=== PATIENT | female | born 1990 | race Native Hawaiian/Other Pacific Islander ===

== ENCOUNTER 2017-05-28 09:57 | Inpatient (IN) | payer OTHER, MEDICAID ==
--- NOTE | 2017-05-28 11:15 | OBHP ---
Datetime: 05/28/2017 10:58 IP Admit Plan: Admit to unit Admit Comment, IP Provider: chief complaint-vaginal bleeding HPI 27 y/o at 39.4 wga with c/o vaginal bleeding whcihs he noticed today.patient states that she had contractions for 2 hours but they stopped and then she wipe dsome blood course uncompliacted PMH denies PSH denies OBGYN HX Social hx-denies tobacco, alcohol or illicit drug use Exam see exam section A/P 27 y/o at 39.4 wga with c/o vaginal bleeding.on arrival patient had a decel for approx 5 min with barbara at 90s which recovered with position change.fht reactive after that.Bedsid escan done .kai 9.2 cm, vertex.Due to the decel at term and vaginal bleeding recommend admission -discussed plan of care with dr wilhelm -admit -see orders Pelvic Type - PN: Adequate Extremities - PN: Normal Abdomen - PN: Normal Back - PN: Normal Lungs - PN: Normal Heart - PN: Normal Neurologic - PN: Normal General - PN: Normal Contraction Comments Provider: occ Gestation - Est Wks by US: 39.4 IP Hx Assessment: The History has been Reviewed and is Current EGA AdmitDate IP: 39.4 Vital Signs Provider: Reviewed; Within Normal Limits IP Chief Complaint: Vaginal bleeding FHR Category Provider Fetus A: Category I Dilatation, Provider: ft Effacement, Provider: 50 Station, Provider: -3 Genitourinary Exam: Normal DTRs - PN: Normal
--- NOTE | 2017-05-28 11:17 | OBADHP ---
Datetime: 05/28/2017 10:58 Admit Comment, IP Provider: chief complaint-vaginal bleeding HPI 27 y/o at 39.4 wga with c/o vaginal bleeding whcihs he noticed today.patient states that she had contractions for 2 hours but they stopped and then she wipe dsome blood course uncompliacted PMH denies PSH denies OBGYN HX Social hx-denies tobacco, alcohol or illicit drug use Exam see exam section FHT 130S, mod [place], +accesl, +decel for 5 min with barabra at 90s.fht reactive now A/P 27 y/o at 39.4 wga with vaginal bleeding and a decel on arrival -admit -see orders Pelvic Type - PN: Adequate Extremities - PN: Normal Abdomen - PN: Normal Back - PN: Normal Lungs - PN: Normal Heart - PN: Normal Neurologic - PN: Normal General - PN: Normal Contraction Comments Provider: occ Gestation - Est Wks by US: 39.4 IP Hx Assessment: The History has been Reviewed and is Current Vital Signs Provider: Reviewed; Within Normal Limits IP Chief Complaint: Vaginal bleeding FHR Category Provider Fetus A: Category I Dilatation, Provider: ft Effacement, Provider: 50 Station, Provider: -3 Genitourinary Exam: Normal DTRs - PN: Normal EGA AdmitDate IP: 39.4 IP Admit Plan: Admit to unit
[2017-05-28 11:22] VITALS: BMI 26.4
[2017-05-28] MEDS ORDERED: Penicillin G 5 Million Unit Vial IVPB ONE ×2 (11:23→12:06)
[2017-05-28] MEDS: Lactated Ringer's 1,000 ML IV SCH (11:33)
[2017-05-28 11:42] LABS: BASO % 0.4 % (0.0-2.0); EOS % 0.5 % (0.0-4.0); HEMATOCRIT 34.6 % (34.0-47.0); LYMPH # 1.5 K/uL (1.0-4.3); LYMPH % 21.9 % (20.0-40.0); MEAN CELL VOLUME 96.6 fL (81.0-99.0); MEAN CORPUSCULAR HEMOGLOBIN 32.4 pg (27.0-31.0); MEAN CORPUSCULAR HGB CONC 33.5 g/dL (33.0-37.0); MEAN PLATELET VOLUME 7.8 fL (7.2-11.7); MONO # 0.4 K/uL (0.0-0.8); MONO % 6.1 % (0.0-10.0); NRBC % 0.1 % (0.0-2.0); RED CELL DISTRIBUTION WIDTH 13.5 % (11.5-14.5); WHITE BLOOD COUNT 6.7 K/uL (4.8-10.8)
[2017-05-28 11:51] LABS: CHLORIDE 105 mmol/L (98-107)
[2017-05-28 11:52] LABS: POTASSIUM 3.8 mmol/L (3.6-5.2); SODIUM 135 mmol/L (132-148)
[2017-05-28 11:54] LABS: ALB/GLOB RATIO 1.1 (1.0-2.1); ALKALINE PHOSPHATASE 86 U/L (38-126); AST/SGOT 20 U/L (14-36); BILIRUBIN,TOTAL 0.5 mg/dL (0.2-1.3); CARBON DIOXIDE 21 mmol/L (22-30); GFR AFRICAN-AMERICAN > 60; TOTAL PROTEIN 6.1 g/dL (6.3-8.3); URINE BILIRUBIN NEGATIVE (NEGATIVE); URINE COLOR Yellow (YELLOW); URINE GLUCOSE (UA) NORMAL (Normal); URINE KETONE NEGATIVE (NEGATIVE); URINE LEUKOCYTE ESTERASE NEG Leu/uL (Negative); URINE PROTEIN NEGATIVE (NEGATIVE); URINE UROBILINOGEN NORMAL mg/dL (0.2-1.0); WBC URINE 3 /hpf (0-5)
[2017-05-28 11:55] LABS: ALT/SGPT 24 U/L (9-52); BLOOD UREA NITROGEN 10 mg/dL (7-17); CALCIUM 8.4 mg/dl (8.6-10.4); GLUCOSE,RANDOM 80 mg/dL (65-105)
[2017-05-28 12:06] LABS: URINE BLOOD 2+ (NEGATIVE)
[2017-05-28 12:07] LABS: RBC URINE 8 /hpf (0-3)
--- NOTE | 2017-05-28 12:19 | OBPN ---
Datetime: 05/28/2017 12:17 IP Progress Impression: Reassuring heart rate IP Procedures: Sterile Vag Exam IP Progress Note Comment: S-patient comfortable FHT cat1 [place] occ ctx sve ft/50/-3 A/P Patient at 39.4 wga with episode of vaginal spotting and decel on arrival to obved.FHT cay1 -cervidil placed -continue pen G for gbs -continue to monitor closely Vital Signs Provider: Reviewed; Within Normal Limits FHR Category Provider Fetus A: Category I Dilatation, Provider: ft Effacement, Provider: 50 Station, Provider: -3 Datetime: 05/28/2017 10:58 Contraction Comments Provider: occ Gestation - Est Wks by US: 39.4
[2017-05-28] MEDS ORDERED: Bupivacaine 0.125%/FentaNYL 200 ML EPI ONE (18:53)
--- NOTE | 2017-05-28 18:56 | OBPN ---
Datetime: 05/28/2017 18:48 IP Progress Impression Other: category II for rare spontaneous prolonged deceleration IP Procedures: Sterile Vag Exam IP Progress Plan: Continue present management Contraction Comments Provider: q2-3min FHR - Baseline A Provider: 130s IP Progress Note Comment: Discussed with patient and family at length about reason for IOL as non-re assuring tracing, and present hospital course. Labor progression normal Discussed etiology of spontaneous decelerations and uncertain prognosis, risk of needing emergent section, risk of not tolerating further labor. At this time the recovery has always been ca tegory I tracing except for the prolonged spontaneous decelerations. For minimal risk recommend elec tive section at this point, but patient and family would like to proceed with continuing ind uction of labor. Understands risks discussed. All questions answered from patient and family. Conv ersation in [place]. Recommend epidural now and NPO in case need emergent treatment. Vital Signs Provider: Reviewed; Within Normal Limits NICHD Accel Fetus A IP Provider: [id number] FHR Category Provider Fetus A: Category II NICHD Variability Prov Fetus A: Moderate 6-25bpm Dilatation, Provider: 1 Effacement, Provider: 70 Station, Provider: -1 NICHD Decel Fetus A IP Provider: Prolonged Datetime: 05/28/2017 12:17 IP Progress Impression: Reassuring heart rate
[2017-05-28] MEDS ORDERED: Oxytocin 30 UNIT 30 UNITS/500 ML BAG IV PRN (23:05)
[2017-05-29] MEDS ORDERED: Oxytocin 30 UNIT 30 UNITS/500 ML BAG IV ONE (01:09)
[2017-05-29] MEDS ORDERED: cefOXitin IV 2 gm in Dextrose 2 GM/50 ML BAG IVPB ONE ×2 (04:30→04:57)
[2017-05-29] MEDS ORDERED: Sodium Citrate/Citric Acid 15 ml Sol PO ONE (04:30)
[2017-05-29] MEDS ORDERED: Bupivacaine 0.25% Inj(30mL) ONE (04:52)
[2017-05-29] MEDS ORDERED: Lidocaine 2% MPF (5 ml) Inj ONE (04:52)
[2017-05-29] MEDS ORDERED: Sodium Citrate/Citric Acid 15 ml Sol ONE (04:57)
[2017-05-29] MEDS: Lactated Ringer's 1,000 ML IV SCH (05:02)
[2017-05-29] MEDS ORDERED: Propofol 10 mg/ml Inj (20 ML) ONE (05:16)
[2017-05-29] MEDS ORDERED: Morphine 1 mg/ml preservative-free Inj(Duramorph) ONE (05:36)
--- NOTE | 2017-05-29 06:13 | OBDS ---
DELIVERY PERSONNEL Delivery Doctor: DR. COTE Scrub Nurse: Briana Ramires Hydraulic Governor Assembler: Maria E Freeman RN Anesthesiologist: Selwyn Millard MD MATERNAL INFORMATION Delivery Anesthesia: Epidural Estimated Blood Loss (ml): 600 Maternal Complications: Other Other Maternal Complications: non-reassuring tracing Provider Comments: Patient LABOR SUMMARY EDC: 05/31/2017 00:00 No. Babies in Womb: 1 Attempted: No Labor Anesthesia: Epidural LABOR INFORMATION Cervical Ripening Agents: Cervidil (Annotations: REMOVED) Oxytocin: Augmentation Group B Beta Strep: Positive Antibiotics Time of Last Dose: 0400 Steroids Given: None Reason Steroids Not Administered: Not Applicable STAGES OF LABOR Stage 3 hrs: 0 Stage 3 min: 3 VAGINAL DELIVERY Episiotomy: None Laceration Extension: N/A Laceration Type: None CSECTION DELIVERY Primary Indication: Nonreassuring Status CSection Incision: Lower Uterine Transverse Uterine Closure: Double-layer closure BABY A INFORMATION Delivery Date/Time: 05/29/2017 05:19 Method of Delivery: Born in Route : No : N/A Forceps: N/A Vacuum Extraction: N/A Shoulder Dystocia : No SHOULDER DYSTOCIA BABY A Infant Delivery Date/Time: 05/29/2017 05:19 PRESENTATION/POSITION BABY A Presentation: Cephalic Cephalic Presentation: Vertex Vertex Position: Right Occipital Posterior Breech Presentation: N/A PLACENTA INFORMATION BABY A Placenta Delivery Time : 05/29/2017 05:22 Placenta Method of Delivery: Manual Removal Placenta Status: Delivered SCORES BABY A Heart Rate 1 min: >100 bpm Resp Effort 1 min: Good Cry Reflex Irritability 1 min: Cough or Sneeze or Pulls Away Muscle Tone 1 min: Active Motion Color 1 min: Body [place], Extremities Blue Resuscitation Effort 1 min: Tactile Stimulation SCORE 1 MIN: 9 Heart Rate 5 min: >100 bpm Resp Effort 5 min: Good Cry Reflex Irritability 5 min: Cough or Sneeze or Pulls Away Muscle Tone 5 min: Active Motion Color 5 min: Body [place], Extremities Blue Resuscitation Effort 5 min: Tactile Stimulation SCORE 5 MIN: 9 INFORMATION BABY A Gestational Age at Delivery: 39.5 Gestational Status: Term Outcome : Liveborn Condition : Stable Sex: Male IDENTIFICATION/MEDS BABY A ID Band Number: [id number] ID Band Location: Left Leg; Left Arm Sensor Applied: Yes Sensor Number: [id number] Sensor Location : Cord Clamp WEIGHT/LENGTH BABY A Infant Birthweight (gms): 2780 Weight (lb): 6 Infant Weight (oz): 2 Length Inches: 19.00 Length cms: 48.3 CORD INFORMATION BABY A No. Cord Vessels: 3 Nuchal Cord : Around Neck x1, Loose Cord Blood Taken: Yes Suction: Mouth; Nose ASSESSMENT BABY A Complications: None Physical Findings at Delivery: Within Normal Limits Infant Respirations: Appears Normal Facilities Custodian/ALS Called : No Infant Care By: /SANTY SIGALA Transferred To: Nursery
[2017-05-29] MEDS ORDERED: Naloxone 0.4 mg/ml Inj (Adult) IVP PRN (06:15)
[2017-05-29] MEDS ORDERED: Acetaminophen IV 1,000 MG in Premixed IV 1 EA IV PRN (06:17)
[2017-05-29] MEDS ORDERED: DiphenhydrAMINE 50 mg/ml Inj IVP PRN (06:21)
[2017-05-29] MEDS ORDERED: Oxycodone/Acetaminophen 5/325 mg Tab PO PRN (06:22)
[2017-05-29] MEDS: Multiple Vitamins Tab PO SCH (09:28)
[2017-05-29] MEDS: Oxycodone/Acetaminophen 5/325 mg Tab PO PRN (16:58)
[2017-05-30 07:05] LABS: BASO % 0.3 % (0.0-2.0); EOS % 0.4 % (0.0-4.0); HEMATOCRIT 30.8 % (34.0-47.0); LYMPH # 1.1 K/uL (1.0-4.3); LYMPH % 11.4 % (20.0-40.0); MEAN CELL VOLUME 97.9 fL (81.0-99.0); MEAN CORPUSCULAR HEMOGLOBIN 32.9 pg (27.0-31.0); MEAN CORPUSCULAR HGB CONC 33.7 g/dL (33.0-37.0); MEAN PLATELET VOLUME 7.2 fL (7.2-11.7); MONO # 0.5 K/uL (0.0-0.8); MONO % 4.6 % (0.0-10.0); RED CELL DISTRIBUTION WIDTH 13.9 % (11.5-14.5); WHITE BLOOD COUNT 9.8 K/uL (4.8-10.8)
[2017-05-30] MEDS: Oxycodone/Acetaminophen 5/325 mg Tab PO PRN ×2 (08:42→16:00)
--- NOTE | 2017-05-30 08:50 | OBPPN ---
Datetime: 05/30/2017 08:37 PP Pain Prov: Within normal limits PP Nausea Prov: Denies PP Flatus Prov: Yes PP BM Prov: No PP Breasts Prov: Normal PP Heart Prov: Normal PP Lungs Prov: Normal PP Abdomen/Uterus Prov: Normal PP Lochia Prov: Normal PP Vulva/Perineum Prov: Normal PP CVA Tenderness Prov: Normal PP Extremities Prov: Normal PP C/S Incision Prov: Normal PP Progress Prov: Normal PP Comments Phys Exam Prov: Incsion C/D/I healing well VE: minimal lochia, non fuol smelling EXT: no calf tendenress, negative suresh's sign PP Impression Prov: Normal progression PP Plan Prov: Continue present management PP Progress Note Prov: Pt seen and examiened. pt reprots pain is controlled with pain medication. Pt reports ambuating, passign flatus, no BM, is breast feeding, toleratign regular diet, denies any fev ers, chills, nasue, vomiting, CP, SOB VSS PE see above A/P s/p PLTCS POD #1 doing well, with acute aysmpomatic blood loss anemia -pain manamgnet -regular diet -abdominal binder/ incentive spirometer -encouargbe breast feeding/ambuation -iron -cont current managment IP PP Procedures: None
[2017-05-30] MEDS: Multiple Vitamins Tab PO SCH (10:31)
[2017-05-31 03:18] VITALS: RESP 20
[2017-05-31] MEDS: Multiple Vitamins Tab PO SCH (09:20)
[2017-06-01] MEDS: Multiple Vitamins Tab PO SCH (10:40)
--- NOTE | 2017-06-01 19:52 | OBDCSUM ---
Datetime: 06/01/2017 19:37 Discharged to, Provider: Home Disch Instr Activity: Normal activity Disch Instr Diet: Regular Discharge Instructions, Provider: Routine instructions given Discharge Time: 06/01/2017 19:37 Disch Referrals: None Contraception discussed, Prov: Yes
[2017-06-02 05:18] VITALS: BP 98/62; PULSE 84; TEMP 97.4; O2SAT 98
--- NOTE | 2017-06-11 01:49 | OP ---
PROCEDURE DATE: 05/29/2017 PREOPERATIVE DIAGNOSES: 1. IUP at 39 weeks 4 days. 2. Oligohydramnios. 3. Nonreassuring status remote from delivery. POSTOPERATIVE DIAGNOSES: 1. IUP at 39 weeks 4 days. 2. Oligohydramnios. 3. Nonreassuring status remote from delivery. PROCEDURE: Text. SURGEON: Eliazar Pulido MD CONSTRUCTION DRIVER: TYPE OF ANESTHESIA: Epidural. ASA class II. DESCRIPTION OF PROCEDURE: The patient was brought to the OR for emergent section. The risks, benefits, complications, treatment options and expected outcomes were discussed prior to surgery. The patient concurred with proposed plan giving informed consent. The patient was prepped and draped in usual sterile fashion. Anesthesia was found to be adequate. A Pfannenstiel incision was made and carried out through the subcutaneous tissue to the fascia. The fascial incision was made sharply and bluntly and extended transversely. The fascia was from the underlying rectus tissue superiorly and inferiorly. The peritoneum was identified and entered. The peritoneal incision was extended bluntly. The bladder, (utero vesicoperitoneal) reflection was away from the incision site. A lower uterine incision transverse incision was made. The fetus was delivered from vertex position. 's were 9 at 1 minute and 9 at 5 minutes. Cord was clamped and cut. A specimen for cord blood was sent for evaluation. The placenta was removed intact and appeared normal. There was a body cord and cord found on the . The uterine outlined tubes and ovaries appeared normal. The uterine incision was closed in 2 layers, first with 0 Vicryl and then with 0 Monocryl. Hemostasis was observed. The peritoneum was closed with chromic. The fascia was then re-approximated with running sutures of 0 Vicryl from either end. The subcutaneous tissue was reapproximated with 2-0 plain gut. The skin was reapproximated with 4-0 Monocryl. Instrument, sponge and needle counts were correct prior to the abdominal closure and at the conclusion of the case, for oneil portions of the procedure. FINDINGS: in vertex position. Normal appearing tubes and ovaries. Nuchal cord, body cord and cord. ESTIMATED BLOOD LOSS: 600 mL. SPECIMENS: Cord placenta. COMPLICATIONS: None. DISPOSITION: . CONDITION: Stable for PACU. I was present for and scrubbed for the entire procedure. Eliazar Pulido MD
--- NOTE | 2017-06-14 07:47 | OP ---
ADDENDUM PROCEDURE DATE: This is for job # [id number], a correction to the dictation. [employer] DIRECTOR NAME: Moises Bertrand MD SPECIMEN: Cord pH and placenta. The sentence is supposed to read, there was a nuchal cord, body cord, and leg cord found on the . The peritoneum was closed with 2-0 chromic and it was also Dr. Elza was necessary for oneil portions of the procedure. DISPOSITION: Stable. Eliazar Pulido MD
--- NOTE | 2017-06-24 18:55 | CARD ---
APPROVED REPORT EKG Measurement Heart [id number] <Conclusion> Sinus bradycardia with sinus arrhythmia Otherwise normal ECG
== END 2017-06-01 20:26 | disposition home or self-care (01) | DRG 766 ==
LOC: C.EROB 09:57 → C.4D 11:23 → C.4M 05-29 08:30
PROVIDERS: ADMIT Obstetrics & Gynecology; ATTEND Obstetrics & Gynecology
PROC: 10D00Z1 Extraction of Products of Conception, Low, Open Approach (ICD-10-PCS; principal; 2017-05-29)
DX: O26.853 Spotting complicating pregnancy, third trimester (principal); O99.02 Anemia complicating childbirth; O76 Abnormality in fetal heart rate and rhythm complicating labor and delivery; O99.824 Streptococcus B carrier state complicating childbirth; O69.81X0 Labor and delivery complicated by cord around neck, without compression, not applicable or unspecified; Z3A.39 39 weeks gestation of pregnancy; Z37.0 Single live birth